=== PATIENT | male | born 1965 | race African-American/Black ===

== ENCOUNTER 2019-07-11 06:31 | Day surgery (SDC) | payer OTHER ==
[2019-07-08 16:23] VITALS: BMI 29.2
[2019-07-11 07:05] LABS: BASO % 0.9 % (0-2.0); EOS % 1.3 % (0-4.5); HEMATOCRIT 44.4 % (35.4-49); LYMPH % 60.6 % (8-40); MCH 31.4 pg (25.7-33.7); MCHC 33.9 g/dl (32.0-35.9); MEAN CELL VOLUME 92.7 fl (80-96); MEAN PLT VOLUME 9.4 fl (7.5-11.1); MONO % 6.3 % (3.8-10.2); NEUT % 30.9 % (42.8-82.8); PLATELET COUNT 193 K/MM3 (134-434); RBC 4.79 M/mm3 (4.00-5.60); RDW 13.9 % (11.9-15.9); WHITE BLOOD COUNT 3.9 K/mm3 (4.0-10.0)
[2019-07-11 07:30] LABS: ALBUMIN 3.8 g/dl (3.4-5.0); BILIRUBIN,TOTAL 0.3 mg/dL (0.2-1); BLOOD UREA NITROGEN 16.8 mg/dL (7-18); CALCIUM 8.9 mg/dL (8.5-10.1); CREATININE 0.9 mg/dL (0.55-1.3); POTASSIUM 3.3 mmol/L (3.5-5.1); TOT PROT 6.7 g/dl (6.4-8.2)
[2019-07-11 07:34] LABS: INR 0.97 (0.83-1.09); PROTHROMBIN TIME (PATIENT) 11.5 SEC (9.7-13.0)
[2019-07-11 07:36] LABS: ACTIVATED PTT 32.9 SECONDS (25.2-36.5)
[2019-07-11 07:41] VITALS: TEMP 98
[2019-07-11] MEDS ORDERED: oxyCODONE HCL 5 MG TABLET PO PRN ×4 (09:31→11:40)
[2019-07-11] MEDS ORDERED: ACETAMINOPHEN 325 MG TABLET (FP) PO PRN ×2 (09:31→11:40)
[2019-07-11] MEDS ORDERED: ONDANSETRON 4 MG/2 ML VIAL IVPUSH PRN ×2 (09:31→11:40)
[2019-07-11] MEDS ORDERED: LIDOCAINE HCL 1%, 10 MG/ML (20ML VIAL) ONE (09:42)
[2019-07-11] MEDS ORDERED: BUPIVACAINE HCL/PF 0.5% (5 MG/ML) 30 ML VIAL IJ ONE ×4 (09:42→10:41)
[2019-07-11] MEDS ORDERED: LACTATED RINGERS SOLUTION 1,000 ML IV SCH (09:45)
--- NOTE | 2019-07-11 10:03 | HP ---
History & Physical Update - History History: No Change - Physical Physical: No Change - Assessment Assessment: No Change - Plan Plan: No Change (for exciosn of soft tissue mass of posterior scalp; r/b/t/a's d /w the patient pre-op and informed consent obtained.)
[2019-07-11] MEDS ORDERED: MIDAZOLAM HCL 2 MG/2 ML SINGLE DOSE VIAL ONE (10:06)
[2019-07-11] MEDS ORDERED: PROPOFOL 20 ML ONE ×3 (10:08)
[2019-07-11] MEDS ORDERED: LIDOCAINE HCL/PF 2% SDV 5ML VIAL ONE (10:09)
[2019-07-11] MEDS ORDERED: LIDOCAINE HCL 1%, 10 MG/ML (20ML VIAL) NR ONE ×3 (10:41)
[2019-07-11 10:54] LABS: ANISOCYTOSIS 0; MACROCYTOSIS 0; PLATELET ESTIMATE NORMAL
[2019-07-11] MEDS ORDERED: BACITRACIN 15 GM TUBE TOPICAL OINTMENT ONE (11:18)
--- NOTE | 2019-07-11 11:37 | OP ---
Operative Note - Note: Operative Date: 07/11/19 Pre-Operative Diagnosis: lipoma of posterior scalp Operation: excision of lipoma Findings: 3.5 cm. lipoma Post-Operative Diagnosis: Same as Pre-op Surgeon: Don Jin Anesthesiologist/HEAVY EQUIPMENT SUPERVISOR: Eli Fernandes Anesthesia: Local, MAC Specimens Removed: lipoma Estimated Blood Loss (mls): 5
[2019-07-11] MEDS ORDERED: PATIENT'S OWN MEDICATION (NON-FORMULARY) (Dulaglutide [Trulicity] 0.75 MG) SQ SCH (11:45)
[2019-07-11] MEDS ORDERED: INSULIN DEGLUDEC SQ SCH (11:45)
[2019-07-11] MEDS ORDERED: oxyCODONE HCL 5 MG TABLET ONE (11:47)
[2019-07-11 13:21] VITALS: BP 149/83; PULSE 57
--- NOTE | 2019-07-11 15:57 | EKG ---
Test Reason : Blood Pressure : / mmHG Vent. Rate : 056 BPM Atrial Rate : 056 BPM P-R Int : 138 ms QRS Dur : 090 ms QT Int : 432 ms P-R-T Axes : 047 -03 -23 degrees QTc Int : 416 ms SINUS BRADYCARDIA INFERIOR INFARCT , AGE UNDETERMINED ABNORMAL ECG NO PREVIOUS ECGS AVAILABLE Confirmed by NICANOR MERLOS, CHERYL ([id number]) on 07/11/2019 3:56:28 PM Referred By: TRISHA PRABHAKAR Confirmed By:CHERYL VICK MD
[2019-07-12] MEDS ORDERED: POTASSIUM CHLORIDE PO SCH (10:00)
[2019-07-12] MEDS ORDERED: TAMSULOSIN HCL 0.4 MG PO SCH (10:00)
[2019-07-12] MEDS ORDERED: PATIENT'S OWN MEDICATION (NON-FORMULARY) (Empagliflozin [Jardiance] 10 MG) PO SCH (10:00)
[2019-07-12] MEDS ORDERED: DOCUSATE SODIUM PO SCH (10:00)
[2019-07-12] MEDS ORDERED: CENTRUM SILVER MEN PO SCH (10:00)
[2019-07-12] MEDS ORDERED: VALSARTAN HCTZ PO SCH (10:00)
[2019-07-12] MEDS ORDERED: PATIENT'S OWN MEDICATION (NON-FORMULARY) (Amlodipine Besylate [Amlodipine Besylate] 10 MG) PO SCH (10:00)
[2019-07-12] MEDS ORDERED: PATIENT'S OWN MEDICATION (NON-FORMULARY) (Simvastatin [Simvastatin] 20 MG) PO SCH (10:00)
--- NOTE | 2019-07-15 17:02 | PATH ---
Surgical Pathology Report Patient Name: ANTHONY DUNBAR [facility]. Rec. #: [id number] /Age/Gender: 1965 (Age: 54) / M Account: [id number] Location: [facility] Taken: 07/11/2019 Received: 07/12/2019 Reported: 07/15/2019 Physicians: Don Jin MD Specimen(s) Received SCALP MASS Clinical History Scalp mass Final Diagnosis SCALP MASS-LIPOMA, EXCISION: MATURE ADIPOSE TISSUE, CONSISTENT WITH LIPOMA. Electronically Signed Geovany Naranjo M.D. Gross Description Received in formalin labeled "scalp mass-lipoma," is a 2.8 x 1.8 x 1.0 cm martinez-yellow, unoriented portion of soft tissue. Sectioning reveals homogeneous yellow, smooth adipose tissue. Videotape Operator sections are submitted in one cassette. DL/07/12/2019 saudi07/12/2019
--- NOTE | 2019-07-18 10:55 | OP ---
DATE OF OPERATION: 07/11/2019 PREOPERATIVE DIAGNOSIS: Lipoma of the posterior scalp. PROCEDURE: Excision of lipoma. SURGEON: Don Jin MD ANESTHESIA: Local with IV sedation. OPERATIVE FINDINGS: There was approximately a 3.5-cm lipoma in the midline of the nuchal area of the neck. The rest of the findings were unremarkable. DESCRIPTION OF PROCEDURE: The patient was placed on the operating room table in the prone position, and the area over the clinical lipoma was prepped with ChloraPrep and draped in sterile fashion. A time-out was taken and incision mapped out and the area infiltrated with 1% Xylocaine, 0.5% Marcaine in equal concentration. Incision was made with a scalpel and taken down through skin and subcutaneous tissue and the deep fascia. The lipoma was identified, and using blunt dissection, it's origin was traced down to the galea where the pedicle was identified and clamped and the lipoma excised and sent for pathological examination. The pedicle was ligated with 3-0 Vicryl suture. Hemostasis was achieved with the electrocautery and the wound copiously irrigated with normal saline. Again, hemostasis was verified and then the wound was closed in layers with interrupted 3-0 Vicryl for the deep fascia and interrupted 3-0 Vicryl for the deep dermis and the skin edges reapproximated using 3-0 nylon horizontal mattress sutures in a continuous fashion. Dry sterile dressings were placed and the procedure terminated at this point and the patient transferred to the post anesthesia care unit in stable condition awake and alert. ESTIMATED BLOOD LOSS: 5 mL. REPLACEMENTS: Crystalloid. DRAINS: None. SPECIMENS: Lipoma to Pathology. I, Don Jin, was physically present in the operating room from the time the patient was placed on the operating room table until he was transferred to the post anesthesia care unit in [place]. MD VASQUEZ Akbar/[id number] MTDD
== END 2019-07-11 13:26 | disposition home or self-care (01) ==
LOC: JASU-SURG 06:31
PROVIDERS: ATTEND Surgery
PROC: 0JB00ZZ Excision of Scalp Subcutaneous Tissue and Fascia, Open Approach (ICD-10-PCS; principal; 2019-07-11 09:00)
DX: D17.0 Benign lipomatous neoplasm of skin and subcutaneous tissue of head, face and neck (principal); E11.9 Type 2 diabetes mellitus without complications; I10 Essential (primary) hypertension
CPT/HCPCS: 36415; 80053; 85025; 85610; 85730; 88304-TC; 93005; 93010

== ENCOUNTER 2020-04-24 05:18 | Day surgery (SDC) | payer OTHER ==
[2020-04-19 11:23] VITALS: BMI 27.1
[2020-04-24 10:37] VITALS: BP 164/68; PULSE 76; TEMP 98
[2020-04-24] MEDS ORDERED: SIMETHICONE 40 MG/0.6 ML BOTTLE ONE (10:57)
== END 2020-04-24 10:35 | disposition home or self-care (01) ==
LOC: JASU-ENDO 05:18
PROVIDERS: ATTEND Internal Medicine Gastroenterology
PROC: 0DJD8ZZ Inspection of Lower Intestinal Tract, Via Natural or Artificial Opening Endoscopic (ICD-10-PCS; principal; 2020-04-24 09:00)
DX: Z12.11 Encounter for screening for malignant neoplasm of colon (principal); K63.89 Other specified diseases of intestine; K64.8 Other hemorrhoids